=== PATIENT | male | born 1995 | race Caucasian/White ===

== ENCOUNTER 2022-10-25 16:16 | Outpatient (CLI) | payer OTHER, SELFPAY ==
--- NOTE | 2022-10-25 11:30 | DI.RAD_ITS ---
Exam(s) XR THUMB LT EXAM: XR THUMB LT CLINICAL HISTORY: Blunt trauma left thumb, pain at [facility], pain lt thumb, M79.645. TECHNIQUE: 2D digital imaging was performed. COMPARISON: No exams were available for comparison FINDINGS: 3 views No evidence of acute fracture or dislocation. No radiopaque foreign body. No osseous lesions nor er osions. No degenerative changes. Carpometacarpal joint appears unremarkable. IMPRESSION: No significant radiograph findings in the left thumb. DATA REPOSITORY: RADIATION DOSE DELIVERED:
== END 2022-10-25 16:36 ==
PROVIDERS: Visit Provider Nurse Practitioner Family
DX: M79.645 Pain in left finger(s) (principal)
CPT/HCPCS: 73140

== ENCOUNTER 2024-04-15 15:46 | Outpatient (REF) | payer OTHER, SELFPAY | END 2024-04-15 15:47 | disposition home or self-care (01) | LOC: LBN 15:46 | PROVIDERS: Visit Provider Physician Assistant | DX: J02.9 Acute pharyngitis, unspecified (principal); R68.89 Other general symptoms and signs; B34.9 Viral infection, unspecified | CPT/HCPCS: 87070 ==